=== PATIENT | female | born 1995 | race Caucasian/White ===

== ENCOUNTER 2021-06-10 20:06 | Emergency (ER) | payer SELFPAY ==
[~2021-06-10] VITALS: Ht 157.4 cm; Wt 67.9 kg
[2021-06-10 20:22] VITALS: BP 109/70
--- NOTE | 2021-06-10 20:27 | ED Integumentary General ---
General Stated Complaint: STREP+,ALL OVER BODY RASH Source: patient Exam Limitations: no limitations History of Present Illness Date Seen by Provider: Jun 10, 2021 Time Seen by Provider: 20:25 Initial Comments 25-year-old female presents with an allover body rash. Patient was diagnosed with strep with a positive test 1 week ago. And started on amoxicillin. Patient reports today she developed a sandpaper rash all over her whole body. Patient denies any fevers or chills. She is not having a sore throat at this time. She denies any nausea vomiting or other systemic complaints. She has no known allergies and no known family allergies to amoxicillin or penicillin. Allergies and Home Medications Allergies Coded Allergies: No Known Drug Allergies (Unverified , 06/10/21) Patient Home Medication List Home Medication List Reviewed: Yes Review of Systems Review of Systems Constitutional: No chills, No fever EENTM: see HPI Respiratory: no symptoms reported Cardiovascular: no symptoms reported Gastrointestinal: no symptoms reported Genitourinary: no symptoms reported Musculoskeletal: no symptoms reported Skin: see HPI Psychiatric/Neurological: No Symptoms Reported Endocrine: No Symptoms Reported Physical Exam Vital Signs Vital Signs - First Documented 06/10/21 20:22 Temp 36.6 Pulse 108 Resp 16 B/P (MAP) 109/70 (83) Pulse Ox 99 O2 Delivery Room Air Capillary Refill : General Appearance: no apparent distress Neck: full range of motion, supple Respiratory: lungs clear, normal breath sounds Gastrointestinal: non tender, soft Extremities: normal range of motion, non-tender Neurologic/Psychiatric: alert, normal mood/affect, oriented x 3 Skin: rash Skin Problem Location: generalized Skin Problem Character: erythema, papules Progress/Results/Core Measures Results/Orders Lab Results Laboratory Tests Test 06/10/21 20:32 Range/Units White Blood Count 6.0 4.3-11.0 10^3/uL Red Blood Count 4.25 3.80-5.11 10^6/uL Hemoglobin 12.5 11.5-16.0 g/dL Hematocrit 38 35-52 % Mean Corpuscular Volume 90 80-99 fL Mean Corpuscular Hemoglobin 29 25-34 pg Mean Corpuscular Hemoglobin Concent 33 32-36 g/dL Red Cell Distribution Width 13.1 10.0-14.5 % Platelet Count 242 130-400 10^3/uL Mean Platelet Volume 9.7 9.0-12.2 fL Immature Granulocyte % (Auto) 0 % Neutrophils (%) (Auto) 62 42-75 % Lymphocytes (%) (Auto) 27 12-44 % Monocytes (%) (Auto) 8 0-12 % Eosinophils (%) (Auto) 3 0-10 % Basophils (%) (Auto) 0 0-10 % Neutrophils # (Auto) 3.7 1.8-7.8 X 10^3 Lymphocytes # (Auto) 1.6 1.0-4.0 X 10^3 Monocytes # (Auto) 0.5 0.0-1.0 X 10^3 Eosinophils # (Auto) 0.2 0.0-0.3 10^3/uL Basophils # (Auto) 0.0 0.0-0.1 10^3/uL Immature Granulocyte # (Auto) 0.0 0.0-0.1 10^3/uL Sodium Level 138 135-145 MMOL/L Potassium Level 3.5 L 3.6-5.0 MMOL/L Chloride Level 101 98-107 MMOL/L Carbon Dioxide Level 26 21-32 MMOL/L Anion Gap 11 5-14 MMOL/L Blood Urea Nitrogen 10 7-18 MG/DL Creatinine 0.71 0.60-1.30 MG/DL Estimat Glomerular Filtration Rate 101 BUN/Creatinine Ratio 14 Glucose Level 150 H 70-105 MG/DL Calcium Level 9.6 8.5-10.1 MG/DL Corrected Calcium 9.4 8.5-10.1 MG/DL Total Bilirubin 0.2 0.1-1.0 MG/DL Aspartate Amino Transf (AST/SGOT) 16 5-34 U/L Alanine Aminotransferase (ALT/SGPT) 10 0-55 U/L Alkaline Phosphatase 59 40-136 U/L Total Protein 7.9 6.4-8.2 GM/DL Albumin 4.2 3.2-4.5 GM/DL Monoscreen NEGATIVE NEGATIVE Group A Streptococcus Screen NEGATIVE NEGATIVE My Orders Orders - ANGELICA DEVI DO Cbc With Automated Diff (06/10/21 20:30) Comprehensive Metabolic Panel (06/10/21 20:30) Monotest (06/10/21 20:30) Rapid Strep A Screen (06/10/21 20:30) Ed Iv/Invasive Line Start (06/10/21 20:50) Vital Signs/I&O 11/5/21 20:22 Temp 36.6 Pulse 108 Resp 16 B/P (MAP) 109/70 (83) Pulse Ox 99 O2 Delivery Room Air Progress Progress Note : Progress Note Patient strep and mono were both negative. Patient has normal white count normal electrolytes. Rash is likely a result of amoxicillin had not scarlatina rash from strep. Discussed findings with patient who voiced understanding. Patient stable and discharged Departure Impression Primary Impression: Amoxicillin rash Disposition: HOME, SELF-CARE Condition: Stable Departure-Patient Inst. Referrals: NO,LOCAL PHYSICIAN (PCP/Family) Primary Care Physician Patient Instructions: Adverse Drug Reactions, Adult, Penicillin Allergy Testing Add. Discharge Instructions: Follow-up with your primary care provider for further outpatient management Return to the ER as needed ANGELICA DEVI DO Jun 10, 2021 20:27
[2021-06-10 20:40] LABS: HEMATOCRIT 38 % (35-52); HEMOGLOBIN 12.5 g/dL (11.5-16.0); MEAN CORPUSCULAR HEMOGLOBIN 29 pg (25-34); MEAN CORPUSCULAR HGB CONC 33 g/dL (32-36); MEAN CORPUSCULAR VOLUME 90 fL (80-99); MEAN PLATELET VOLUME 9.7 fL (9.0-12.2); NEUTROPHILS % (AUTO) 62 % (42-75); PLATELET COUNT 242 10^3/uL (130-400)
[2021-06-10 20:41] LABS: BASOPHILS % (AUTO) 0 % (0-10); EOSINOPHILS # (AUTO) 0.2 10^3/uL (0.0-0.3); EOSINOPHILS % (AUTO) 3 % (0-10); LYMPHOCYTES # (AUTO) 1.6 X 10^3 (1.0-4.0); LYMPHOCYTES % (AUTO) 27 % (12-44); MONOCYTES # (AUTO) 0.5 X 10^3 (0.0-1.0); MONOCYTES % (AUTO) 8 % (0-12); NEUTROPHILS # (AUTO) 3.7 X 10^3 (1.8-7.8)
[2021-06-10 20:58] LABS: ALBUMIN 4.2 GM/DL (3.2-4.5); BILIRUBIN,TOTAL 0.2 MG/DL (0.1-1.0); CALCIUM 9.6 MG/DL (8.5-10.1); CREATININE SERUM 0.71 MG/DL (0.60-1.30); POTASSIUM 3.5 MMOL/L (3.6-5.0); TOTAL PROTEIN 7.9 GM/DL (6.4-8.2)
== END 2021-06-10 21:09 | disposition home or self-care (01) ==
LOC: EDUNIT# 20:06 → ER FS 20:09
DX: L27.0 Generalized skin eruption due to drugs and medicaments taken internally (principal); T36.0X5A Adverse effect of penicillins, initial encounter
CPT/HCPCS: 36415; 80053; 85025; 86308; 87430